=== PATIENT | female | born 1950 | race Caucasian/White ===

== ENCOUNTER 2017-11-28 04:27 | Emergency (ER) | payer BC ==
[~2017-11-28] VITALS: Ht 157.4 cm; Wt 64.9 kg
[~2017-11-28 04:27] MED LIST: BACTRIM DS 8001 TA1 PO; MOTRIN800 MG PO; PYRIDIUM200 MG PO
[2017-11-28 04:32] VITALS: BP 141/80
== END 2017-11-28 05:22 | disposition home or self-care (01) ==
LOC: ED 04:27
DX: T23.502A Corrosion of first degree of left hand, unspecified site, initial encounter (principal); T23.501A Corrosion of first degree of right hand, unspecified site, initial encounter; Z98.51 Tubal ligation status; X12.XXXA Contact with other hot fluids, initial encounter; Y93.89 Activity, other specified; Y92.89 Other specified places as the place of occurrence of the external cause; Y99.9 Unspecified external cause status